=== PATIENT | male | born 1970 | race Caucasian/White ===

== ENCOUNTER 2018-08-29 20:40 | Emergency (ER) | payer BC, OTHER ==
[2018-08-29] MEDS: ONDANSETRON (ODT) 4 MG TAB ODT (22:38)
[2018-08-29] MEDS: KETOROLAC 30 MG INJ IM (22:38)
== END 2018-08-30 00:20 | disposition home or self-care (01) ==
LOC: FTE 08-30 00:20
DX: S50.02XA Contusion of left elbow, initial encounter (principal); V49.9XXA Car occupant (driver) (passenger) injured in unspecified traffic accident, initial encounter
CPT/HCPCS: 73080; 73080-LT; 96372; 99284-25